=== PATIENT | male | born 1985 | race Caucasian/White ===

== ENCOUNTER 2016-07-29 18:40 | Emergency (ER) | payer OTHER ==
[2016-07-29 19:33] VITALS: BP 119/79
--- NOTE | 2016-07-29 19:44 | UC ---
Throat Pain/Nasal Jere HPI - HPI Summary HPI Summary: pt c/o sore throat, cough, generalized malaise X 2 weeks. - History of Current Complaint Stated Complaint: SORE THROAT Time Seen by Provider: 07/29/16 19:29 Hx Obtained From: Patient Onset/Duration: Gradual Onset, Lasting Weeks Severity: Mild Cough: Nonproductive Associated Signs & Symptoms: Positive: Dysphagia - Epiglottits Risk Factors Epiglottis Risk Factors: Negative - Allergies/Home Medications Allergies/Adverse Reactions: Allergies Allergy/AdvReac Type Severity Reaction Status Date / Time No Known Allergies Allergy Verified 07/29/16 19:28 Home Medications: Home Medications Acetaminophen [Acetaminophen Extra Stren] 1,000 mg PO Q6H PRN 07/29/16 [History Confirmed 07/29/16] Ibuprofen TAB* [Advil TAB*] 400 mg PO Q6H PRN 07/29/16 [History Confirmed ] PMH/Surg Hx/FS Hx/Imm Hx Previously Healthy: Yes - Surgical History Surgical History: None - Family History Known Family History: Positive: Other - positive [facility] for URI - Social History Occupation: Employed Full-time Lives: With Family Alcohol Use: Weekly Substance Use Type: None Smoking Status (MU): Never Smoked Tobacco - Immunization History Most Recent Influenza Vaccination: 04/22/16 Review of Systems Constitutional: Chills, Fatigue Skin: Negative Eyes: Negative ENT: Sore Throat Respiratory: Cough Cardiovascular: Negative Gastrointestinal: Negative Genitourinary: Negative Motor: Negative Neurovascular: Negative Musculoskeletal: Negative Neurological: Headache Psychological: Negative All Other Systems Reviewed And Are Negative: Yes Physical Exam Triage Information Reviewed: Yes Appearance: Ill-Appearing - mild Vital Signs: Initial Vital Signs Temp 98.3 F 07/29/16 19:26 Pulse 88 07/29/16 19:26 Resp 16 07/29/16 19:26 BP 119/79 07/29/16 19:26 Pulse Ox 98 07/29/16 19:26 Vital Signs Reviewed: Yes ENT Exam: Other ENT: Positive: Pharyngeal erythema, Nasal congestion, TM bulging Neck exam: Normal Respiratory Exam: Normal Cardiovascular Exam: Normal Musculoskeletal Exam: Normal Neurological Exam: Normal Psychological Exam: Normal Skin Exam: Normal Throat Pain/Nasal Course/Dx - Differential Dx/Diagnosis Differential Diagnosis/HQI/PQRI: Influenza, Pharyngitis, URI Provider Diagnoses: pharyngitis Discharge - Discharge Plan Condition: Stable Disposition: HOME Prescriptions: Penicillin VK TAB 500 MG(NF) 500 mg PO Q12HR #14 tab Pseudoephedrine-Guaifenesin [Mucinex D 60-600 mg] 1 tab PO DAILY #7 tab Patient Education Materials: Pharyngitis (ED) Referrals: [facility] [Outside]
== END 2016-07-29 20:12 | disposition home or self-care (01) ==
LOC: UCCORT 18:40
DX: J02.9 Acute pharyngitis, unspecified (principal)
CPT/HCPCS: 87651; 99202; G0463